=== PATIENT | female | born 1965 | race American Indian/Alaskan Native ===

== ENCOUNTER 2016-12-02 13:20 | Outpatient (CLI) | payer OTHER | END 2016-12-02 14:30 | disposition home or self-care (01) | LOC: MAMMO 13:20 | DX: Z12.31 Encounter for screening mammogram for malignant neoplasm of breast (principal) | CPT/HCPCS: G0202-TC ==

== ENCOUNTER 2016-12-05 09:20 | Outpatient (CLI) | payer OTHER | END 2016-12-05 19:39 | disposition home or self-care (01) | LOC: MAMMO 09:20 | DX: R92.8 Other abnormal and inconclusive findings on diagnostic imaging of breast (principal) | CPT/HCPCS: G0206-TC ==

== ENCOUNTER 2017-12-09 11:43 | Outpatient (CLI) | payer OTHER | END 2017-12-09 22:18 | disposition home or self-care (01) | LOC: MAMMO 11:43 | DX: Z12.31 Encounter for screening mammogram for malignant neoplasm of breast (principal) ==

== ENCOUNTER 2018-06-29 09:36 | Outpatient (CLI) | payer OTHER ==
[2018-06-29 10:18] LABS: PLATELET COUNT 271 K/uL (152-353)
[2018-06-29 10:26] LABS: POTASSIUM 3.5 mmol/L (3.6-5.2)
== END 2018-06-29 20:22 | disposition home or self-care (01) ==
LOC: RAD 09:36
PROVIDERS: Internal Medicine
DX: S22.000A Wedge compression fracture of unspecified thoracic vertebra, initial encounter for closed fracture (principal); R09.1 Pleurisy
CPT/HCPCS: 36415; 80053; 82306; 85027

== ENCOUNTER 2018-07-01 09:52 | Outpatient (CLI) | payer OTHER | END 2018-07-01 22:09 | disposition home or self-care (01) | LOC: RAD 09:52 | DX: S22.000A Wedge compression fracture of unspecified thoracic vertebra, initial encounter for closed fracture (principal) ==

== ENCOUNTER → 2018-08-24 | Outpatient (CLI) | payer OTHER | LOC: LABW 13:43 | DX: E55.9 Vitamin D deficiency, unspecified (principal) | CPT/HCPCS: 36415; 82306 ==

== ENCOUNTER 2019-01-29 11:34 | Outpatient (CLI) | payer OTHER | END 2019-01-29 23:46 | disposition home or self-care (01) | LOC: MAMMO 11:34 | DX: Z12.39 Encounter for other screening for malignant neoplasm of breast (principal) ==

== ENCOUNTER 2019-02-01 17:51 | Outpatient (CLI) | payer OTHER ==
[2019-02-01 18:05] LABS: PLATELET COUNT 194 K/uL (152-353)
[2019-02-01 18:34] LABS: POTASSIUM 3.5 mmol/L (3.6-5.2)
== END 2019-02-01 20:32 | disposition home or self-care (01) ==
LOC: LABW 17:51
PROVIDERS: Internal Medicine
DX: R06.02 Shortness of breath (principal); R00.2 Palpitations
CPT/HCPCS: 36415; 80053; 83880; 84439; 84443; 85027; 85379

== ENCOUNTER 2019-02-02 11:11 | Outpatient (CLI) | payer OTHER | END 2019-02-02 21:14 | disposition home or self-care (01) | LOC: RAD 11:11 | DX: R06.02 Shortness of breath (principal) ==

== ENCOUNTER 2019-04-06 12:55 | Outpatient (CLI) | payer OTHER | END 2019-04-06 19:22 | disposition home or self-care (01) | LOC: RESP 12:55 | DX: I10 Essential (primary) hypertension (principal); R00.2 Palpitations | CPT/HCPCS: 93306 ==

== ENCOUNTER 2019-05-27 10:29 | Outpatient (CLI) | payer OTHER | END 2019-05-27 19:52 | disposition home or self-care (01) | LOC: RESP 10:29 | DX: R00.2 Palpitations (principal) | CPT/HCPCS: 93225 ==

== ENCOUNTER 2019-06-22 10:44 | Outpatient (CLI) | payer OTHER ==
[2019-06-22 11:32] LABS: PLATELET COUNT 210 K/uL (152-353)
[2019-06-22 11:57] LABS: POTASSIUM 3.7 mmol/L (3.6-5.2)
== END 2019-06-22 20:10 | disposition home or self-care (01) ==
LOC: LABW 10:44
PROVIDERS: Internal Medicine
DX: I10 Essential (primary) hypertension (principal); E78.00 Pure hypercholesterolemia, unspecified
CPT/HCPCS: 36415; 80053; 80061; 82306; 83970; 84439; 84443; 85027

== ENCOUNTER 2020-01-26 09:15 | Outpatient (CLI) | payer OTHER | END 2020-01-26 19:43 | disposition home or self-care (01) | LOC: US 09:15 | DX: R10.2 Pelvic and perineal pain (principal) ==

== ENCOUNTER 2020-02-10 12:01 | Outpatient (CLI) | payer OTHER | END 2020-02-10 21:11 | disposition home or self-care (01) | LOC: MAMMO 12:01 | DX: Z12.31 Encounter for screening mammogram for malignant neoplasm of breast (principal) ==

== ENCOUNTER 2020-03-01 08:09 | Outpatient (CLI) | payer OTHER ==
[2020-03-01 08:25] LABS: PLATELET COUNT 170 K/uL (152-353)
[2020-03-01 08:58] LABS: POTASSIUM 3.5 mmol/L (3.6-5.2)
== END 2020-03-01 23:15 | disposition home or self-care (01) ==
LOC: LABW 08:09
PROVIDERS: Internal Medicine
DX: R06.02 Shortness of breath (principal)
CPT/HCPCS: 36415; 80053; 83880; 84439; 84443; 85027; 85379

== ENCOUNTER 2020-05-17 08:59 | Outpatient (CLI) | payer OTHER | END 2020-05-17 23:57 | disposition home or self-care (01) | LOC: LAB 08:59 | PROVIDERS: ATTEND Nurse Practitioner Family | DX: N30.01 Acute cystitis with hematuria (principal) | CPT/HCPCS: 87077; 87086; 87088; 87186 ==

== ENCOUNTER → 2020-08-02 11:57 | Outpatient (CLI) | payer OTHER | END | disposition home or self-care (01) | LOC: LABW 11:57 → US 13:00 | PROVIDERS: ATTEND Internal Medicine | DX: E01.0 Iodine-deficiency related diffuse (endemic) goiter (principal) | CPT/HCPCS: 36415; 84439; 84443 ==

== ENCOUNTER 2020-08-21 08:25 | Outpatient (CLI) | payer OTHER | END 2020-08-21 22:48 | disposition home or self-care (01) | LOC: US 08:25 | PROVIDERS: ATTEND Internal Medicine | DX: R10.13 Epigastric pain (principal) ==

== ENCOUNTER 2021-01-22 12:33 | Outpatient (CLI) | payer OTHER | END 2021-01-22 22:43 | disposition home or self-care (01) | LOC: US 12:33 | PROVIDERS: ATTEND Obstetrics & Gynecology | DX: N93.0 Postcoital and contact bleeding (principal) ==

== ENCOUNTER 2021-02-12 12:41 | Outpatient (CLI) | payer OTHER | END 2021-02-12 21:49 | disposition home or self-care (01) | LOC: MAMMO 12:41 | PROVIDERS: ATTEND Obstetrics & Gynecology | DX: Z12.31 Encounter for screening mammogram for malignant neoplasm of breast (principal) ==

== ENCOUNTER 2021-07-13 08:52 | Outpatient (CLI) | payer OTHER ==
[2021-07-13 09:05] LABS: PLATELET COUNT 154 K/uL (152-353)
[2021-07-13 09:25] LABS: POTASSIUM 3.5 mmol/L (3.6-5.2)
== END 2021-07-13 20:25 | disposition home or self-care (01) ==
LOC: LABW 08:52
PROVIDERS: ATTEND Internal Medicine
DX: E04.1 Nontoxic single thyroid nodule (principal)
CPT/HCPCS: 36415; 80053; 84439; 84443; 84481; 85027

== ENCOUNTER 2021-08-15 13:25 | Outpatient (CLI) | payer OTHER | END 2021-08-15 19:23 | disposition home or self-care (01) | LOC: LABW 13:25 | PROVIDERS: ATTEND Internal Medicine Endocrinology, Diabetes & Metabolism | DX: E04.2 Nontoxic multinodular goiter (principal) | CPT/HCPCS: 36415; 84445; 86376 ==

== ENCOUNTER 2022-01-17 13:48 | Outpatient (CLI) | payer OTHER | END 2022-01-17 22:27 | disposition home or self-care (01) | LOC: US 13:48 | PROVIDERS: ATTEND Internal Medicine Endocrinology, Diabetes & Metabolism | DX: E04.2 Nontoxic multinodular goiter (principal); M85.80 Other specified disorders of bone density and structure, unspecified site | CPT/HCPCS: 36415; 82306; 84439; 84443; 84481 ==

== ENCOUNTER 2022-02-15 12:43 | Outpatient (CLI) | payer OTHER | END 2022-02-15 21:05 | disposition home or self-care (01) | LOC: MAMMO 12:43 | PROVIDERS: ATTEND Obstetrics & Gynecology | DX: Z12.31 Encounter for screening mammogram for malignant neoplasm of breast (principal); M85.89 Other specified disorders of bone density and structure, multiple sites ==

== ENCOUNTER 2022-04-23 13:23 | Outpatient (CLI) | payer OTHER | END 2022-04-23 17:00 | disposition home or self-care (01) | LOC: LAB 13:23 | PROVIDERS: ATTEND Nurse Practitioner Family | DX: R30.0 Dysuria (principal) | CPT/HCPCS: 87077; 87086; 87088; 87186 ==

== ENCOUNTER 2022-06-20 10:45 | Outpatient (CLI) | payer OTHER ==
[2022-06-20 11:06] LABS: PLATELET COUNT 224 K/uL (152-353); POTASSIUM 3.4 mmol/L (3.6-5.2)
== END 2022-06-20 18:51 | disposition home or self-care (01) ==
LOC: LABW 10:45
PROVIDERS: ATTEND Nurse Practitioner Family
DX: R00.2 Palpitations (principal); I10 Essential (primary) hypertension; K21.9 Gastro-esophageal reflux disease without esophagitis; E07.89 Other specified disorders of thyroid; E78.49 Other hyperlipidemia
CPT/HCPCS: 36415; 80053; 80061; 83036; 85027

== ENCOUNTER 2022-07-14 14:18 | Emergency (ER) | payer OTHER ==
[~2022-07-14] VITALS: Ht 157.5 cm; Wt 48.5 kg
[2022-07-14 14:47] LABS: PLATELET COUNT 181 K/uL (152-353)
[2022-07-14 14:54] LABS: POTASSIUM 3.3 mmol/L (3.6-5.2)
[2022-07-14 15:32] VITALS: BP 140/73; TEMP 97.3
== END 2022-07-14 15:32 | disposition home or self-care (01) ==
LOC: ED 14:18
PROVIDERS: Internal Medicine
DX: R06.02 Shortness of breath (principal); Z20.822 Contact with and (suspected) exposure to COVID-19
CPT/HCPCS: 36415; 80053; 84443; 84484; 85027; 87635; 93005; 99283; U0003

== ENCOUNTER 2022-07-29 12:52 | Outpatient (CLI) | payer OTHER | END 2022-07-29 20:22 | disposition home or self-care (01) | LOC: CT 12:52 | PROVIDERS: ATTEND Internal Medicine Cardiovascular Disease | DX: Z13.6 Encounter for screening for cardiovascular disorders (principal); Z82.49 Family history of ischemic heart disease and other diseases of the circulatory system ==

== ENCOUNTER 2022-07-30 09:49 | Outpatient (CLI) | payer OTHER | END 2022-07-30 23:15 | disposition home or self-care (01) | LOC: LABW 09:49 | PROVIDERS: ATTEND Internal Medicine Gastroenterology | DX: R10.13 Epigastric pain (principal); K58.9 Irritable bowel syndrome, unspecified | CPT/HCPCS: 82272; 87338 ==

== ENCOUNTER 2022-08-08 12:23 | Outpatient (CLI) | payer OTHER ==
[2022-08-08 12:57] LABS: POTASSIUM 3.7 mmol/L (3.6-5.2)
== END 2022-08-08 21:25 | disposition home or self-care (01) ==
LOC: LABW 12:23
PROVIDERS: ATTEND Internal Medicine Endocrinology, Diabetes & Metabolism
DX: E04.2 Nontoxic multinodular goiter (principal); M85.89 Other specified disorders of bone density and structure, multiple sites
CPT/HCPCS: 36415; 80053; 84439; 84443

== ENCOUNTER 2023-02-07 11:02 | Outpatient (CLI) | payer OTHER ==
[2023-02-07 11:56] LABS: POTASSIUM 3.7 mmol/L (3.6-5.2)
== END 2023-02-07 20:26 | disposition home or self-care (01) ==
LOC: LABW 11:02
PROVIDERS: ATTEND Internal Medicine Endocrinology, Diabetes & Metabolism
DX: E04.2 Nontoxic multinodular goiter (principal); M85.89 Other specified disorders of bone density and structure, multiple sites; R79.89 Other specified abnormal findings of blood chemistry
CPT/HCPCS: 36415; 80069; 82306; 82652; 83735; 83970; 84443

== ENCOUNTER 2023-04-03 12:25 | Outpatient (CLI) | payer OTHER | END 2023-04-03 19:59 | disposition home or self-care (01) | LOC: MAMMO 12:25 | PROVIDERS: ATTEND Nurse Practitioner Family | DX: Z12.31 Encounter for screening mammogram for malignant neoplasm of breast (principal) ==

== ENCOUNTER 2023-08-05 09:10 | Outpatient (CLI) | payer OTHER ==
[2023-08-05 09:48] LABS: POTASSIUM 3.7 mmol/L (3.6-5.2)
== END 2023-08-05 19:06 | disposition home or self-care (01) ==
LOC: LABW 09:10
PROVIDERS: ATTEND Internal Medicine Endocrinology, Diabetes & Metabolism
DX: E04.2 Nontoxic multinodular goiter (principal); M85.89 Other specified disorders of bone density and structure, multiple sites; E55.9 Vitamin D deficiency, unspecified; R73.03 Prediabetes
CPT/HCPCS: 80053; 82306; 83036; 84443